=== PATIENT | male | born 2005 | race Caucasian/White ===

== ENCOUNTER 2025-05-25 23:02 | Inpatient (IN) | payer OTHER, SELFPAY ==
[2025-05-25] VITALS (18 sets, daily range): BP systolic 107–159; BP diastolic 57–102; BMI 24.7
--- NOTE | 2025-05-25 21:15 | ED.GENMED ---
History of Present Illness
General
Chief Complaint: Heart Rate Problem
Time Seen by Provider: 05/25/25 21:00
History of Present Illness
History of Present Illness:
Patient is a 18-year-old male with history of intermittent episodes of palpitations that have self resolved in the past who presents to the emergency department palpitations. He reports a family history of WPW in his sister. In the past, he has
attributed his palpitations to caffeine use and alcohol use. He has cut these out and continues to have episodes about once every 1 to 2 months. Today he had an episode of palpitations beginning this afternoon which have not resolved. He has
never been evaluated by cto.
Phy Exam
Physical Exam
Physical Exam:
GENERAL APPEARANCE: NAD, well developed/ well nourished
EYES lids/conjunctiva normal
EARS/NOSE/THROAT Mucous membranes moist,
HEAD/NECK normocephalic atraumatic, neck is supple.
RESPIRATORY respiratory effort normal, speaks in full sentences, no accessory muscle use. Lungs clear to auscultation without rhonchi, wheezes, rales
CARDIAC irregularly irregular rhythm. Tachycardic.
ABDOMINAL Soft, ND/NT. No pulsatile masses on exam, rebound tenderness, Zhang sign or pain over Mcburney's point.
MUSCLES/EXTREMITIES No abnormal range of motion, no swelling.
SKIN Warm, pink and dry. No rashes
NEUROLOGICAL Speech is clear and appropriate. Normal level of consciousness. 5/5 strength in all extremities.
PSYCH Normal mood and affect. Judgement/competence is appropriate
Course
Orders/Labs/Results
Orders:
Orders
05/25/25 20:44
ECG [Electrocardiogram (*1)] Urgent
Reason for Study: Palpitations
05/25/25 20:45
EKG- Treatment ONCE
05/25/25 21:06
0.9% Sodium Chloride 1000 ml [Nss] 1,000 ml IV BOLUS
05/25/25 21:19
Basic Metabolic Panel Urgent
Complete Blood Count/With Diff Urgent
Magnesium Urgent
PTT Urgent
Prothrombin Time Urgent
Troponin I Urgent
05/25/25 22:08
CR Chest Portable - 1 View Urgent
Comment:
Reason For Exam: afib, palpitations
Reason Study Needs to be Portable: Patient Unstable
05/25/25 22:22
Procainamide [Pronestyl] 1,000 mg Dextrose 5%/Water 50 ml [D5w] 48 ml IV NOW
05/25/25 22:39
Admit/Transfer Patient As Directed
Co-Sign Provider:
Level of Care: Inpatient admission
Assign to:: IMU- Intermediate Care
Physician / Group: Gurwinder
Diagnosis: A-Fib / Pre-excitation
Reason for Hospitalization: A-Fib / Pre-excitation
Expected length of stay greater than two midnights?: Yes
ELOS- Estimated Length of Stay in days: 2
I certify the patient meets the requirements for IP care: Yes
05/25/25 22:41
PRN Pain Medication Management As Directed
May give lesser potent ordered pain med per pt: Yes
preference::
Protocol:: Medication orders for pain may be administered in a
manner that supports deferring to patient preference
when the pt is:
- Requesting an ordered lesser potent pain medication.
Least to most potent pain medications are defined
as: acetaminophen < NSAID < tramadol < opioids
(morphine, oxycodone, hydromorphone).
- Requesting a lesser dose of the same medication IF
ORDERED.
- Requesting a less intrusive route of administration
if both routes are prescribed by the provider (PO <
IV).
05/25/25 22:43
Code Status As Directed
Resuscitation Status: Full Code
05/25/25 23:00
Flush (0.9% Sodium Chloride) [Flush (Nss)] See Dose Instructions IV PER PROTOCOL
05/26/25 00:37
Troponin I Q6H
0.9% Sodium Chloride 1000 ml [Nss] 1,000 ml IV 150 mls/hr
Acetaminophen [Tylenol] 650 mg PO Q4HPRN PRN
05/26/25 00:37
CARDIOLOGY CONSULT Routine
Consulting Provider: Ihsmael Huffman
Was physician already notified: Yes
Reason for consult: A-Fib / Pre-excitation
TSH Reflex To Free T4 Routine
Activity As Directed
Activity Level: Ambulate
With Assistance
EKG with chest pain [ECG as needed] As Directed
ECG as needed for:: Chest Pain
I/O [Intake/ Output] As Directed
Frequency: Per unit guidelines
Vital Signs As Directed
Frequency: Per unit guidelines
Weight As Directed
Frequency: Daily
Oxygen Therapy [O2 Therapy] [RESP] Routine
Titrate/Wean O2 to maintain O2 sat greater than (%): 94
DX Deep Vein Thrombosis Video Routine
05/26/25 06:00
EKG [Electrocardiogram (*1)] IN AM
Reason for Study: Chest Pain
NPO
Allow oral meds: Yes
Allow clear liquids: Sips of Clears
Basic Metabolic Panel IN AM
Complete Blood Count/No Diff IN AM
Magnesium IN AM
05/26/25 06:37
Troponin I Q6H
05/26/25 12:37
Troponin I Q6H
05/26/25 18:00
Enoxaparin Sodium [Lovenox] 40 mg SC QPM
Abnormal Lab Results
05/25/25
21:19
MCH 32.4 H pg
(27.0-31.0)
PT 15.0 H Sec
(11.4-14.6)
BUN 24 H mg/dl
(9-20)
Creatinine 1.6 H mg/dL
(0.7-1.3)
Glucose 108 H mg/dl
(70-99)
Troponin I 0.046 H* ng/ml
05/25/25 21:19
05/25/25 21:19
Vital Signs
Initial and Last Documented VS:
Initial Vital Signs
Temp Pulse Resp BP Pulse Ox
97.2 F 77 18 159/102 99
05/25/25 20:43 05/25/25 20:43 05/25/25 20:43 05/25/25 20:43 05/25/25 20:43
Last Documented Vital Signs
Temp Pulse Resp BP Pulse Ox
97.4 F 117 24 157/137 96
05/26/25 00:44 05/26/25 00:41 05/26/25 00:30 05/26/25 00:41 05/26/25 00:25
*Pulse Oximetry
SaO2: 99
Oxygen Mode of Delivery: Room air
Patient hypoxic: no
*Critical Care Note
Total Time (30-74mins, 75-104mins- exclusive of procedures): Not Applicable
ED Attending Note
ED Attending Note
ED Attending Note:
patient with EKG concerning for Afib with preexcitation
hemodynamically stable
consulted cardiology Dr Huffman who spoke with EP purchasing contracting clerk
plan for procainamide load and admission to hospital
-
Portions of this chart may have been created with voice recognition software.� Occasional wrong word or��sound alike� substitutions may have occurred due to the inherent limitations of voice recognition software.
Discharge Plan
Departure
Patient Disposition: Admit
Date of Disposition: 05/25/25
Time of Disposition: 22:19
Presentation/result/management discussed w/ accepting MD/DO: Hospitalist
Discharge Problem:
Atrial fibrillation with rapid ventricular response
Interventions
Interventions:
*Risk Screen - Suicide Last Done: 05/26/25 00:44
*General Assessment Last Done: 05/25/25 21:13
*Neglect/Abuse Screening Last Done: 05/25/25 20:43
*ED- Fall Risk Assessment Last Done: 05/25/25 21:13
*ED COVID-19 Vaccine History Last Done: 05/25/25 21:13
*Nursing Disposition Last Done: 05/26/25 00:35
ED- Cardiac Assessment Last Done: 05/25/25 21:13
ED- Pulmonary Assessment Last Done: 05/25/25 21:13
Discharge Date and Time
Discharge Date/Time: 05/26/25 00:35
[2025-05-25] MEDS: NSS 1000 IV (21:26)
[2025-05-25 21:35] LABS: Hematocrit 46.9 % (39.0-52.0); Hemoglobin 16.7 g/dL (13.0-18.0); Mean Corp Hgb Conc. 35.6 g/dL (33.0-37.0); Mean Corpuscular Volume 90.9 fL (80.0-94.0); Nucleated Red Blood Cells % 0 % (-); Platelet Count 218 10^3/uL (130-400); Red Cell Dist. Width 11.9 % (11.5-14.5)
[2025-05-25 21:43] LABS: INR 1.15; PT 15.0 Sec (11.4-14.6)
[2025-05-25 21:44] LABS: APTT 29.2 Sec (23.4-35.0)
[2025-05-25 21:55] LABS: Blood Urea Nitrogen 24 mg/dl (9-20); Calcium 9.5 mg/dl (8.4-10.2); Carbon Dioxide 24 mmol/L (22-30); Chloride 107 mmol/L (98-107); Estimated Creatinine Clearance 75 ml/min; Glucose 108 mg/dl (70-99); Magnesium 2.3 mg/dl (1.6-2.3); Potassium 4.1 mmol/L (3.5-5.1); Sodium 139 mmol/L (135-145); eGFR > 60.00
[2025-05-25 22:09] LABS: Troponin I 0.046 ng/ml
[2025-05-25] MEDS: FLUSH (NSS) 1 FLUSH IV (22:45)
--- NOTE | 2025-05-25 22:45 | HPS.HSE ---
Family Physician
-
Family Physician: * NONE
Chief Complaint
-
Palpitations
History of Present Illness
Patient is a 20y M with no significant PMH who presents to ED complaining of palpitations. Patient states that he developed heart racing sensation / palpitations this afternoon while at the gym. His symptoms persisted throughout the evening and
he presented to the ED for further evaluation. He has some vague chest discomfort. Denies SOB, lightheadedness, N/V, etc.
Patient reports similar episode that occurred about 1-2 months ago. This lasted for several hours before resolving spontaneously / with mediation.
Family history is significant for WPW in his younger sister and maternal cousin. Patient himself was tested for WPW at [facility] when he was 2-3 yo (at time of sister's diagnosis) and this was reportedly negative.
He has had no symptoms prior to 1-2 months ago.
In the ED, he is resting comfortably in no acute distress.
Medical History
Past Medical History
Past Medical History: Reports None
Past Surgical History: Reports None
Social History
Tobacco: Non-smoker
Alcohol: Occasional
Drug: None
Family History
Family History: Other (Sister: WPW Maternal Cousin: WPW PGF: A-Fib)
Allergies / Home Medications
Allergies reflects when Allergies were last updated in [employer].
Home Medications with original date entered in [employer]
Allergy/Medication List:
Allergies
Allergy/AdvReac Type Severity Reaction Status Date / Time
No Known Allergies Allergy Unverified 05/25/25 20:43
Home Medications
No Meds [No Current Medications] 05/25/25
Review of Systems
-
History Source: Patient
A 12 point ROS was completed and negative except as noted: Yes
Constitutional: Denies Fever or Chills
Respiratory: Denies Cough or Trouble Breathing
Cardiac: Reports Palpitations; Denies Chest Pain or Syncope
Abdomen/GI: Denies Abdominal Pain, Nausea, Vomiting or Diarrhea
: Denies Dysuria or Frequency
Musculoskeletal: Denies Joint Pain or Edema
Neurological: Denies Dizzy or Headache
Physical Exam
Vital Signs
Vital Signs
Temp Pulse Resp BP Pulse Ox
97.2 F 118 17 140/75 98
05/25/25 20:43 05/25/25 22:42 05/25/25 22:42 05/25/25 22:42 05/25/25 22:42
Physical Exam
General: Other (20y M in no distress.)
HEENT: Moist mucous membranes and PERRLA
Respiratory: Clear; No Wheezes, Rales or Rhonchi
Cardiac: S1/S2, Irregular Rhythm and Tachycardia; No Murmur
GI: Soft, Non Tender, Non Distended and Normal Bowel Sounds
Musculoskeletal: No Clubbing, No Cyanosis and No Edema
Neuro: AO x 3
Laboratory Results
-
05/25/25 21:19
05/25/25 21:19
Laboratory Results
PT 15.0 Sec (11.4-14.6) H 05/25/25 21:19
INR 1.15 05/25/25 21:19
APTT 29.2 Sec (23.4-35.0) 05/25/25 21:19
Troponin I 0.046 ng/ml H* 05/25/25 21:19
Impression/Plan
-
A/P: Patient is a 20y M with no significant PMH who presents to ED complaining of palpitations x several hours.
A-Fib / Pre-excitation
- Admit to IMU for further evaluation and treatment.
- EKG with irregular rhythm with periods of ectopy / delta waves suggesting pre-excitation.
- Note family h/o WPW though patient himself reportedly tested negative in his youth.
- Cardiology recommended procainamide infusion.
- Monitor closely on telemetry. Discontinue drip if / when patient returns to sinus rhythm.
- Decrease rate by 1/2 if patient develops hypotension.
- Cardiology / EP evaluation in the AM.
- Follow troponin to peak - elevation likely secondary to tachyarrhythmia.
- Monitor for any new / worsening symptoms.
DVT Prophylaxis: Lovenox
Code Status: Full
[2025-05-25] MEDS: PRONESTYL 50 MG IV (22:50)
[2025-05-26] VITALS (18 sets, daily range): BP systolic 108–157; BP diastolic 61–137; BMI 24.4
[2025-05-26] MEDS: NSS 1000 IV ×4 (00:51→20:46)
--- NOTE | 2025-05-26 01:19 | PTCARENOTE ---
Received patient from ED. Patient is AAOx3 and on RA. Patient has hr is between 110-140. Heart rhythm is irregular. Mother is at bedside with patient. No complaints at this time. Assessment and vital signs as charted, call romero in reach.
[2025-05-26 01:46] LABS: Troponin I 0.030 ng/ml
[2025-05-26 05:53] LABS: Hematocrit 43.0 % (39.0-52.0); Hemoglobin 15.0 g/dL (13.0-18.0); Mean Corp Hgb Conc. 34.9 g/dL (33.0-37.0); Mean Corpuscular Volume 92.7 fL (80.0-94.0); Platelet Count 187 10^3/uL (130-400); Red Cell Dist. Width 12.1 % (11.5-14.5)
[2025-05-26 06:16] LABS: Blood Urea Nitrogen 20 mg/dl (9-20); Calcium 9.0 mg/dl (8.4-10.2); Carbon Dioxide 21 mmol/L (22-30); Chloride 112 mmol/L (98-107); Estimated Creatinine Clearance 100 ml/min; Glucose 96 mg/dl (70-99); Magnesium 2.2 mg/dl (1.6-2.3); Potassium 4.3 mmol/L (3.5-5.1); Sodium 141 mmol/L (135-145); eGFR > 60.00
[2025-05-26 06:28] LABS: Troponin I < 0.012 ng/ml
--- NOTE | 2025-05-26 09:11 | CON.CAR ---
Addendum entered and electronically signed by Bryan Dubois MD 05/26/25 10:48:
Patient was seen and evaluated personally. The case was discussed in detail with nurse practitioner. I agree with the note, plan of care, and documentation as noted below.
Briefly, 20-year-old gentleman with family history of WPW's including his sister which was diagnosed at her . He himself was evaluated at [facility] in 2004 and no significant abnormality identified at that time. On 05/25/2025, he presented to the ER
with atrial fibrillation with preexcitation and was noted to be conducting via the pathway and quite fast rate. Patient's symptoms included palpitations but he denies any chest pain or dizziness. No presyncope. Atrial fibrillation with rapid
ventricle response with preexcitation was treated emergently with procainamide. Patient converted to normal sinus rhythm overnight and is in normal sinus rhythm this morning.
Patient is feeling better while in sinus rhythm and palpitations are gone. 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
Given the fact that the patient's pathway was conducting at fast rates and was associated with atrial fibrillation, we will recommend aggressively treating this pathway. Currently patient is in normal sinus rhythm.
His case and EKGs were explained in detail to patient and his mother. Patient's father, Dr. Gonsalves is a colleague of mine and is in OR right now.
We will proceed with workup including an echo today. We will consider doing WPW ablation tomorrow. Keep n.p.o. after midnight.
Original Note:
Consultation
Consultation Request
Date/Time Consultation Requested: 05/26/2025 00:37
Date/Time Consultation Performed: 09:10
Requesting Provider: Dr. Purdy
Performing Provider: SELWYN Ramos for Dr. Dubois
Reason for Consultation: Atrial fibrillation, pre excitation
Medical History
-
Chief Complaint: Palpitations
History of Present Illness:
Thalia Gonsalves is a 20-year-old male without a significant past medical history who presented to the emergency department with a chief complaint of palpitations. He has had palpitations before and attributed them to caffeine or alcohol. Despite
cessation, he continues to have episodes. His sister had WPW. He was evaluated at [facility] ~2004 and was cleared at that time. Also, his mother has von Willebrand's. He presented with atrial fibrillation with rapid ventricular response.
Preexcitation also seen on telemetry. He received a procainamide 1000 mg infusion. Telemetry still reveals preexcitation. He denies chest pain, dizziness, and shortness of breath.
His mother is at his bedside and provides collateral information.
Past Medical History
Past Medical History: None
Past Surgical History: None
Social History
Tobacco: Non-Smoker
Personal: Single
Living: With Family
Family History
Family History: Other (Sister: WPW. Mother: Von Willebrand's)
Allergies / Home Medications
Allergy/AdvReac Type Severity Reaction Status Date / Time
No Known Allergies Allergy Unverified 05/25/25 20:43
�Medication �Instructions �Recorded �Confirmed �Type
No Meds [No Current Medications] 05/25/25 05/25/25 History
Review of Systems
-
History Source: Patient
All other systems: Negative unless noted
Constitutional: No Symptoms
EENT: No Symptoms
Respiratory: No Symptoms
Cardiac: Palpitations
Abdomen/GI: No Symptoms
: No Symptoms
Musculoskeletal: No Symptoms
Skin: No Symptoms
Neurological: No Symptoms
Endocrine: No Symptoms
Hematologic/Lymphatic: No Symptoms
Physical Exam
Vital Signs
Temp Pulse Resp BP Pulse Ox
97.5 F 68 13 108/65 97
05/26/25 07:25 05/26/25 05:30 05/26/25 05:30 05/26/25 04:00 05/26/25 05:30
Lab Results
05/26/25 05:41
05/26/25 05:41
Troponin I < 0.012 ng/ml D 05/26/25 05:41
Physical Exam
General: Well Developed, Well Nourished, No Apparent Distress and Comfortable
HEENT: Normocephalic, Anicteric and Moist Mucous Membranes
Respiratory: Clear and Non Labored Respirations
Cardiac: S1/S2 and Irregular Rhythm; Negative Peripheral Edema
Breast: Deferred by me
GI: Soft, Non Tender, Non Distended and Normal Bowel Sounds
Rectal: Deferred by Provider
Genito-urinary: No Costovertebral Tender
Musculoskeletal: No Clubbing
Skin: Warm and Dry
Neuro: AO x 3
Hematologic/Lymphatic: No Lymphadenopathy
Psych: Calm
Impression / Plan
-
I/P: 20M without significant past medical history presents with WPW and atrial fibrillation with rapid ventricular response
Outpatient estimator: None
WPW
- S/p procainamide 1000 mg
- Denies OTC supplements
- Update EKG and magnesium level
- Echocardiogram
- Outpatient evaluation at the age of 1 was negative for WPW ([facility]), sister had WPW
Atrial fibrillation with rapid ventricular response
- Now in sinus
- Oral Anticoagulation: None
- [id number]: Zero (<del>Heart</del> <del>failure,</del> <del>HTN,</del> <del>age</del> <del>75</del> <del>or</del> <del>more,</del> <del>Diabetes</del> <del>Mellitus,</del> <del>prior</del> <del>Stroke/TIA,</del> <del>Vascular</del>
<del>disease,</del> <del>age</del> <del>65-74,</del> <del>female</del> <del>gender</del>)
- TSH 7.08, T4 1.14
Abnormal troponin, nonischemic myocardial injury in the setting of tachyarrhythmia
- Currently free of chest pain
- Peak troponin on arrival, 0.046, trending down
Family history of von Willebrand's in his mother
SUBJECTIVE:
As above.
Data Reviewed
-
EKG: Report Reviewed by me
Radiology: Report Reviewed by me (CXR: No acute cardiopulmonary process.)
Labs: Labs Reviewed by me
--- NOTE | 2025-05-26 11:32 | W.PN.HOSP.TC ---
Today's Communication/Plan
-
Assessment / Plan
Assessment / Plan
General: No Apparent Distress, Comfortable and Conversant
HEENT: NormoCephalic, Moist mucous membranes, Atraumatic
Respiratory: Clear and Non Labored Respirations
Cardiac: S1/S2 and Regular Rhythm; No murmur, sinus rhythm on telemetry with abnormal QRS complexes, heart rate 60s to 70s
GI: Soft, Non Tender, Non Distended and Normal Bowel Sounds
Musculoskeletal: No Edema, no deformity
Skin: Warm and dry
: NO Srinivasan
Neuro: Awake, Alert, Nonfocal/grossly intact
Psych: Calm and Intact Judgment/Insight
Mr. Gonsalves is a 20-year-old male with no significant personal medical history who presented with palpitations while working out at the gym. He had some associated vague chest discomfort but denied dizziness or shortness of breath. He has a family
history of his sister being diagnosed with WPW at . He himself was evaluated at that time (when he was 1 to 1 years old) at [facility] with no significant findings. In the ED he was found to be in A-fib with RVR with an aberrant conduction pathway
consistent with WPW. He was treated emergently with procainamide and converted to normal sinus rhythm. He is currently comfortable with no further palpitations and his heart rate remains controlled in the 60s to 70s. He has been admitted for
further evaluation management.
Dvrgo-Shvhznokb-Umbvv:
- Presented with rapid heart rate with aberrant conduction pathway apparently via the posterior septal region
- Treated emergently with procainamide in the ED with return to normal sinus rhythm
- Echocardiogram pending
- Monitor electrolytes, troponin mildly elevated at 0.046 initially and has been downtrending
- Cardiology following
- Will keep n.p.o. after midnight for tentative ablation tomorrow
- Patient was evaluated at the age of 1 at [facility] and found to have no evidence of WPW at that time, sister was diagnosed with WPW at which is the reason he was tested
- Discussed plan with patient's mother who was at bedside and who is a former critical care nurse at this facility, father is a plastic surgeon at this institution and is currently in the OR
DVT prophylaxis: Lovenox
CODE STATUS: Full code
Total time spent on today's encounter was 45 minutes
Anticipated Discharge: 24 - 48 hours
Subjective/Interval History
-
Date of Service: May 26, 2025
Patient was seen and examined at bedside this morning. Heart rate currently well-controlled after emergently being treated with procainamide overnight for A-fib with RVR due to WPW.
Objective Data
-
Labs:
Laboratory Results
05/26/25
05:41
WBC 6.4
Hgb 15.0
Hct 43.0
Plt Count 187
Sodium 141
Potassium 4.3
Chloride 112 H
Carbon Dioxide 21 L
BUN 20
Creatinine 1.2
Glucose 96
Calcium 9.0
Vital Signs:
Vital Signs
Temp Pulse Resp BP Pulse Ox
97.5 F 68 13 108/65 97
05/26/25 07:25 05/26/25 05:30 05/26/25 05:30 05/26/25 04:00 05/26/25 05:30
Review of Systems
-
History Source: Patient
All other systems: Reviewed and negative
Physical Exam
-
General: No Apparent Distress
--- NOTE | 2025-05-26 16:44 | CM ---
Patient with Dx Xgkok-Wejjeiwag-Pfcso. Plan tentative ablation tomorrow. Room air.
Met with patient who resides with his parents in a 2 story house.
The patient was independent in ADLs and ambulation.
He was active and had recently graduated from [employer] as a neuroscience major, with plans to go to Medical School.
The patient has no DME, prior VN.
PCP none
Ph[facility]acy - [facility]
The patient confirms that his mother is a prior ICU nurse, and his father is a Plastic Surgeon.
No CM d/c needs identified.
Plan home.
[2025-05-26] MEDS: LOVENOX 40 MG SC (17:49)
--- NOTE | 2025-05-26 19:43 | PTCARENOTE ---
day shift note. pt in sinus rytyhm today. denies any chest pain or palpitations. iv fluids infusing. ekg and echo done per order. pt is for ablation tomorrow and will be npo after midnight. report given to oncoming rn.
[2025-05-27] VITALS (15 sets, daily range): BP systolic 105–145; BP diastolic 63–97; BMI 24.4
--- NOTE | 2025-05-27 01:09 | PTCARENOTE ---
Assumed care for patient overnight, received report from dalton RN. Pt remains in NSR on the monitor HR 68. Pt asymptomatic and denies any dizziness, chest pain, or palpitations. Pt NPO tonight at midnight for ablation in AM. IVF cont. Pt appears
to be resting comfortably in bed, call romero within reach. Mother is staying overnight.
[2025-05-27] MEDS: NSS 1000 IV (03:55)
[2025-05-27 04:15] LABS: Hematocrit 42.8 % (39.0-52.0); Hemoglobin 14.9 g/dL (13.0-18.0); Mean Corp Hgb Conc. 34.8 g/dL (33.0-37.0); Mean Corpuscular Volume 92.4 fL (80.0-94.0); Platelet Count 180 10^3/uL (130-400); Red Cell Dist. Width 12.0 % (11.5-14.5)
[2025-05-27 04:36] LABS: Blood Urea Nitrogen 15 mg/dl (9-20); Calcium 8.5 mg/dl (8.4-10.2); Carbon Dioxide 23 mmol/L (22-30); Chloride 115 mmol/L (98-107); Estimated Creatinine Clearance 109 ml/min; Glucose 101 mg/dl (70-99); Potassium 4.1 mmol/L (3.5-5.1); Sodium 142 mmol/L (135-145); eGFR > 60.00
--- NOTE | 2025-05-27 07:40 | PTCARENOTE ---
assumed care of pt from nightshift RN. Pt currently sinus eunice on the monitor. VSS. Denies dizziness, heart palpitations. Pt currently NPO for ablation to be done today. Call romero within reach, pt able to make needs known. Care ongoing.
--- NOTE | 2025-05-27 10:37 | W.PN.CD ---
Today's Communication / Plan
-
- Plan for EP study and ablation.
Impression / Plan
-
I/P: 20M without significant past medical history presents with WPW and atrial fibrillation with rapid ventricular response
Outpatient telegraphic typewriter operator chief: None
WPW
- Posteroseptal pathway. Conducts fast with AF.
- S/p procainamide 1000 mg
- Now in sinus but had pre-excitation.
- Echocardiogram 05/26- Normal -LVEF 60%
- Outpatient evaluation at the age of 1 was negative for WPW ([facility] [place]), sister had WPW
- Plan for ablation for the pathway - Close to the conduction system. The risks and benefits were discussed in detail with patient and parents. (Both parents are colleagues of [employer] [place] [facility] - Dad is a plastic / ENT surgeon and Mom is critical care nurse).
- Keep NPO today.
Atrial fibrillation with rapid ventricular response
- Now in sinus
- Oral Anticoagulation: None
- [id number]: Zero (<del>Heart</del> <del>failure,</del> <del>HTN,</del> <del>age</del> <del>75</del> <del>or</del> <del>more,</del> <del>Diabetes</del> <del>Mellitus,</del> <del>prior</del> <del>Stroke/TIA,</del> <del>Vascular</del>
<del>disease,</del> <del>age</del> <del>65-74,</del> <del>female</del> <del>gender</del>)
- TSH 7.08, T4 1.14 - Lytes normal.
Abnormal troponin, nonischemic myocardial injury in the setting of tachyarrhythmia
- Currently free of chest pain
- Peak troponin on arrival, 0.046, trending down
Family history of von Willebrand's in his mother
SUBJECTIVE:
No active complaints.
Physical Exam
Vital Signs/Labs
Vital Signs
Temp Pulse Resp BP Pulse Ox
97.7 F 64 10 133/80 98
05/27/25 03:20 05/27/25 08:00 05/27/25 08:00 05/27/25 08:00 05/27/25 00:44
05/26/25 05/27/25 05/28/25
06:59 06:59 06:59
Actual Weight 77.2 kg 77.2 kg
05/27/25 04:04
05/27/25 04:04
PT 15.0 Sec (11.4-14.6) H 05/25/25 21:19
INR 1.15 05/25/25 21:19
APTT 29.2 Sec (23.4-35.0) 05/25/25 21:19
Magnesium Cancelled 05/26/25 12:00
Free T4 1.14 ng/dl (0.78-2.19) 05/26/25 01:14
LAB Results
05/25/25 05/26/25 05/26/25
21:19 01:14 05:41
Troponin I 0.046 H* 0.030 D < 0.012 D
05/26/25
12:37
Troponin I Cancelled
Physical Exam
Constitutional: No acute distress and Comfortable
EENT: Anicteric and Moist mucous membranes
Cardiovascular: Rhythm & rate is regular, JVD pressure is normal and Systolic murmur absent
Respiratory: Respiratory effort normal and Lungs clear to auscul.
GI: Soft, Distention absent, Non tender and Normal bowel sounds
Neuro/Psych: Alert, Oriented, AO x 3 and Motor deficits absent
Data Reviewed
-
Date of Service: May 27, 2025
Medical Decision Making: Reviewed Test Results, Test Interpretation and Review of Case with other Provider
EKG: Tracing Personally Visualized and interpreted
Echo: Report Reviewed by me
Labs: Labs Reviewed by me
Old Records: Reviewed
--- NOTE | 2025-05-27 13:06 | PTCARENOTE ---
report given to ROSIE RN. Pt to go for ablation
--- NOTE | 2025-05-27 14:08 | PTCARENOTE ---
pt to go to IVU after cathlab. Report given to IVU RN.
--- NOTE | 2025-05-27 14:39 | W.PN.HOSP.TC ---
Today's Communication/Plan
-
Assessment / Plan
Assessment / Plan
General: No Apparent Distress, Comfortable and Conversant
HEENT: NormoCephalic, Moist mucous membranes, Atraumatic
Respiratory: Clear and Non Labored Respirations
Cardiac: S1/S2 and Regular Rhythm; No murmur, sinus rhythm on telemetry with abnormal QRS complexes, heart rate 60s to 70s
GI: Soft, Non Tender, Non Distended and Normal Bowel Sounds
Musculoskeletal: No Edema, no deformity
Skin: Warm and dry
: NO Srinivasan
Neuro: Awake, Alert, Nonfocal/grossly intact
Psych: Calm and Intact Judgment/Insight
Mr. Gonsalves is a 20-year-old male with no significant personal medical history who presented with palpitations while working out at the gym. He had some associated vague chest discomfort but denied dizziness or shortness of breath. He has a family
history of his sister being diagnosed with WPW at . He himself was evaluated at that time (when he was 1 to 1 years old) at [facility] with no significant findings. In the ED he was found to be in A-fib with RVR with an aberrant conduction pathway
consistent with WPW. He was treated emergently with procainamide and converted to normal sinus rhythm. He is currently comfortable with no further palpitations and his heart rate remains controlled in the 60s to 70s. He has been admitted for
further evaluation management.
Hccjv-Qqhgommvx-Ftkzf:
- Presented with rapid heart rate with aberrant conduction pathway apparently via the posterior septal region
- Treated emergently with procainamide in the ED with return to normal sinus rhythm
- Echocardiogram shows preserved ejection fraction with wall motion consistent with conduction abnormality
- Monitor electrolytes, troponin mildly elevated at 0.046 initially and has been downtrending
-Currently n.p.o. pending ablation with EP this afternoon
- Patient was evaluated at the age of 1 at [facility] and found to have no evidence of WPW at that time, sister was diagnosed with WPW at which is the reason he was tested
- Discussed plan with patient's mother who was at bedside and who is a former critical care nurse at this facility, father is a plastic surgeon at this institution
DVT prophylaxis: Lovenox
CODE STATUS: Full code
Total time spent on today's encounter was 35 minutes
Anticipated Discharge: 24 - 48 hours
Subjective/Interval History
-
Date of Service: May 27, 2025
Patient was seen and examined at bedside. Comfortable. Awaiting EP procedure for cardiac ablation this afternoon.
Objective Data
-
Labs:
Laboratory Results
05/27/25
04:04
WBC 6.6
Hgb 14.9
Hct 42.8
Plt Count 180
Sodium 142
Potassium 4.1
Chloride 115 H
Carbon Dioxide 23
BUN 15
Creatinine 1.1
Glucose 101 H
Calcium 8.5
Vital Signs:
Vital Signs
Temp Pulse Resp BP Pulse Ox
97.7 F 56 14 129/80 99
05/27/25 08:30 05/27/25 12:00 05/27/25 12:00 05/27/25 12:00 05/27/25 09:51
I&O
05/26/25 05/27/25 05/28/25
06:59 06:59 06:59
Intake Total 3760 / 3760
Balance 3760 / 3760
Review of Systems
-
History Source: Patient
All other systems: Reviewed and negative
Physical Exam
-
General: No Apparent Distress
--- NOTE | 2025-05-27 15:30 | PTCARENOTE ---
all of pt belongings transferred to rm [id number].
--- NOTE | 2025-05-27 15:52 | ITS.CL.ABL ---
[employer] - Ablation
Ablation
Procedure Report:
Supra-Ventricular Tachycardia � AVRT Ablation:
Mr. Gonsalves is a very pleasant�20 yr old young man with medical history significant for WPW and palpitations and was diagnosed with supra-ventricular tachycardia (SVT). He presented with atrial fibrillation with fast conduction via pathway and needed
treatment with Procainamide. He is brought here today to the EP lab for electrophysiology (EP) study of the heart and possible ablation of the accessory pathway.
�
Date of the Procedure:
05/27/2025
Indications: Supra-Ventricular Tachycardia (SVT)
�
Pre-Operative Diagnosis: Supra-Ventricular Tachycardia (SVT)
�
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
�
Procedure Performed: EP study and SVT ablation
�
Performing Physician:
Bryan Dubois MD
��
Anesthesia:
See anesthesia records
�
Detailed Description of the Procedure:
Written informed consent was obtained from the patient after a full explanation of the risks and benefits of the procedure including the risks of sedation and anesthesia. The patient was brought to the electrophysiology laboratory in stable
condition in fasting state. Continuous electrocardiographic and hemodynamic monitoring was initiated.
The initial rhythm was normal sinus.
The procedure site was meticulously prepared with surgical scrub and allowed to dry with no pooling. Sterile draping was applied to cover the procedure site. The image intensifier was draped with sterile bag and positioned over the patient.
Sheath and Catheter Placement:
After infusion of local anesthetic, vascular access was obtained under ultrasound guidance and sheaths were placed over guide wire as detailed below.
�
Sheaths:
- � � � 6 Fr sheath in right femoral vein
- � � � 7 Fr sheath in right femoral vein
- � � � 10 Fr that was later upgraded to 11.5 Fr Agilis sheath in right femoral vein
Catheters:
- � � � 6Fr � CRD Quad - cath at HIS
- � � � Deca polar Bard catheter - at locations of CS
- � � � HD Grid in RA and RV
- � � � 4mm force sensing irrigated Tacticath SF Bidirectional ablation catheter
�
Following the sheaths placement, patient was given Heparin bolus and EP study was done.
Baseline intervals (milliseconds):
PP interval (baseline cycle length): 665
P wave duration: 88
AK interval: 88
QRS duration: 115
QT interval: 320
QTc: 392 ms
�
P onset to HRA: 0
P onset to AVJ: 40
AH interval: 44
His duration: 12
HV interval: 0
Q onset to RVa: 0
��
Sinus Node Function:
HRA pacing showed adequate threshold. The sinus node functions are within acceptable normal range.
�
Atrioventricular Brendon Function:
Atrial stimulation with incremental pacing intervals was performed from the high right atrium (HRA) and right ventricular apex (RVa) and antegrade and retrograde atrioventricular (AV) block cycle lengths were determined. The antegrade AV Wenckebach
was noted at 290 msec.
�
Programmed atrial stimulation was performed with drive train of 600 msec followed by a single atrial extra-stimulus and the AV brendon and the atrial ERPs were determined
Pre ablation, AVNERP was <230msec
AERP was 230msec.
There was pre-excitation noted throughout.
Ventricular stimulation showed concentric, retrograde conduction through the posterolateral pathway. The retrograde CS activation was different from the sinus activation.
A septal pathway was suspected.
Ventricular Function:
VA Enckebach was 310msec.
Single ventricular extrastimuli were delivered following drive train of 600 msec and the ventricular ERP was determined at below 700/250 msec. The ventricular electrical functions are within acceptable range.
Para-Hisian pacing:
The anteroseptal pathway prompted the study and Para-Hisian pacing was attempted. The QRS remained wide and HIS could not be captured without capturing the ventricle. But the VA time remained unchanged with high and low voltage. A septal accessory
pathway was suspected. ��
There was clear pre-excitation noted and the AP was demonstrable. The decision was made to map and ablate the pathway.
Electroanatomic 3D Mapping (EAM) and Ablation:
The sinus rhythm was mapped with earliest RV activation and the pathway was mapped. The HIS signals were identified and were mapped.
The RV was paced and the earliest A was mapped using [employer].
�
The RA and the CS was mapped that showed that the AP was closer to mouth of the CS at the septal side consistent with postero-septal accessory pathway.�The CS and LA was out of the AP location.
The HD grid from [employer] was removed and ablation catheter wasplaced. EAM and radiofrequency ablation was performed using an open irrigation, force-sensing 4mm radiofrequency ablation catheter ([employer]am Mobile). 3D mapping was performed with [employer]
software. Cardiac anatomy as established. His cloud was established.
3D contact electroanatomical map was created using [employer] 3D mapping.�The AP was noted to be located at the postero septal location.�The RA was mapped with RV pacing.
Ablation: WPW AP ablation
The EAM of the RA septum and the CS showed posteroseptal location of the pathway. The HIS signal was close to the pathway insertion as well. The atrial insertion was noted. Near the atrial insertion, the pathway potentials were noted. Radiofrequency
ablation was performed using [employer] Mobile with low-irrigation, force-sensing 4mm bidirectional radiofrequency ablation catheter through the Agilis sheath. The ablation catheter was placed at the point of interest with the distinct pathway potential
present and the ablation lesions was applied at 35 navarro for 60 degrees. Multitude of slow junctional beats were noted without any dropped beats.
The pre-excitation disappeared with the first ablation and were noted again with observation. Additional ablations were placed and no more pre-excitation noted.
Post Ablation EP study:
There was no sign of AV block present. The EP study was done that showed normal conduction with decremental conduction.
There was still normal brendon retrograde VA conduction present.
The post ablation EP study showed normal AV conduction. There was no retrograde VA conduction present post ablation.
The AK was 159msec (changed from 88 ms); QRS was 95msec; AH was 55msec with HV of 45msec.
Post ablation AV brendon ERP was 600/340 msec with atrial ERP at <600/340 msec.
There was no sign of AV block noted.
Procedure End
Following the completion of the EP study, catheters were removed. The sheaths were removed and hemostasis achieved with placement of �VASCADE� and manual compression.
�
Estimated Blood loss:
<5 cc
�
Specimens Removed:
None.
�
Implants / Devices:
None
�
Urine output:
None
�
Packs / Drains/ Tubes:
None
�
Instrument / Sponge Count Correct:
Yes
�
Complications of the Procedure:
None
�
Condition of Patient at Time of Transfer:
Hemodynamically stable with no neurological or vascular compromise.
�
Summary:
Electrophysiology study with posteroseptal pathway and accessory pathway ablation.
--- NOTE | 2025-05-27 16:19 | PTCARENOTE ---
Rec'd pt from EP lab. Pt is AOX3. Tele- SR w/ SA. HR 60s. Dr. Ramos at bedside. R groin is c/d/i. No bleeding/hematoma noted. Activity restrictions reviewed w/ pt and verbalizes understanding. Pt has no complaints at this time. Oriented pt to
room. Parents at bedside. Currently in bed; call heather w/in reach.
[2025-05-27] MEDS: LOVENOX 40 MG SC (20:02)
--- NOTE | 2025-05-27 22:43 | PTCARENOTE ---
Assumed care of the pt @ 1900. Pt is AAOx3 SR/ST on the monitor vss. Rt groin PVI site c/d/i. Mom at bedside. Call romero within reach.
[2025-05-28] VITALS (7 sets, daily range): BP systolic 129–146; BP diastolic 61–87
[2025-05-28 04:41] LABS: Hematocrit 42.2 % (39.0-52.0); Hemoglobin 15.1 g/dL (13.0-18.0); Mean Corp Hgb Conc. 35.8 g/dL (33.0-37.0); Mean Corpuscular Volume 91.7 fL (80.0-94.0); Platelet Count 200 10^3/uL (130-400); Red Cell Dist. Width 11.7 % (11.5-14.5)
[2025-05-28 05:12] LABS: Blood Urea Nitrogen 11 mg/dl (9-20); Calcium 9.3 mg/dl (8.4-10.2); Carbon Dioxide 24 mmol/L (22-30); Chloride 111 mmol/L (98-107); Estimated Creatinine Clearance 109 ml/min; Glucose 95 mg/dl (70-99); Magnesium 1.9 mg/dl (1.6-2.3); Potassium 4.1 mmol/L (3.5-5.1); Sodium 140 mmol/L (135-145); eGFR > 60.00
--- NOTE | 2025-05-28 08:09 | W.PN.CD ---
Today's Communication / Plan
-
- Plan for redo AP ablation in AM
Impression / Plan
-
I/P: 20M without significant past medical history presents with WPW and atrial fibrillation with rapid ventricular response
Outpatient adventure guide: None
WPW
- Posteroseptal pathway. Conducts fast with AF.
- s/p Radiofrequency ablation 05/27/25 - narrow QRS and normal WA interval
- The pathway started conducting again at 1:40 am 05/28/25
- Plan for redo ablation on 05/29/25- NPO after midnight.
- Now in sinus but had pre-excitation.
- Echocardiogram 05/26- Normal -LVEF 60%
Atrial fibrillation with rapid ventricular response
- Now in sinus
- Oral Anticoagulation: None
- [id number]: Zero (<del>Heart</del> <del>failure,</del> <del>HTN,</del> <del>age</del> <del>75</del> <del>or</del> <del>more,</del> <del>Diabetes</del> <del>Mellitus,</del> <del>prior</del> <del>Stroke/TIA,</del> <del>Vascular</del>
<del>disease,</del> <del>age</del> <del>65-74,</del> <del>female</del> <del>gender</del>)
- TSH 7.08, T4 1.14 - Lytes normal.
Abnormal troponin, nonischemic myocardial injury in the setting of tachyarrhythmia
- Currently free of chest pain
- Peak troponin on arrival, 0.046, trending down
Family history of von Willebrand's in his mother
SUBJECTIVE:
No active complaints.
Physical Exam
Vital Signs/Labs
Vital Signs
Temp Pulse Resp BP Pulse Ox
97.9 F 63 16 132/77 97
05/28/25 08:02 05/28/25 04:10 05/28/25 04:10 05/27/25 22:50 05/28/25 08:02
05/27/25 05/28/25 05/29/25
06:59 06:59 06:59
Actual Weight 77.2 kg
05/28/25 04:18
05/28/25 04:18
PT 15.0 Sec (11.4-14.6) H 05/25/25 21:19
INR 1.15 05/25/25 21:19
APTT 29.2 Sec (23.4-35.0) 05/25/25 21:19
Magnesium 1.9 mg/dl (1.6-2.3) 05/28/25 04:18
Free T4 1.14 ng/dl (0.78-2.19) 05/26/25 01:14
LAB Results
05/25/25 05/26/25 05/26/25
21:19 01:14 05:41
Troponin I 0.046 H* 0.030 D < 0.012 D
05/26/25
12:37
Troponin I Cancelled
Physical Exam
Constitutional: No acute distress and Comfortable
EENT: Anicteric and Moist mucous membranes
Cardiovascular: Rhythm & rate is regular, Pedal edema is absent and JVD pressure is normal
Respiratory: Respiratory effort normal, Lungs clear to auscul. and Wheeze Absent
GI: Soft, Non tender and Normal bowel sounds
Neuro/Psych: Alert, Oriented, AO x 3 and Motor deficits absent
Other: Cath Site
Data Reviewed
-
Date of Service: May 28, 2025
Medical Decision Making: Reviewed Test Results, Test Interpretation and Review of Case with other Provider
EKG: Tracing Personally Visualized and interpreted
Echo: Report Reviewed by me
Medical Tests (PFT, Pathology etc): Image Personally Visualized and interpreted
Labs: Labs Reviewed by me
Old Records: Reviewed
--- NOTE | 2025-05-28 11:16 | PTCARENOTE ---
Pt is AOx3, no complaints of pain or discomfort. Independent OOB. SR on tele monitor, VSS. Right groin CDI. Plan for repeat ablation tomorrow, NPO after midnight. Parents at bedside and updated. Call romero within reach.
--- NOTE | 2025-05-28 12:49 | CM ---
Chart reviewed. Patient is independent of ADLS, lives with his parent sin a 2 STH, 0 DME. Patient going for a redo ablation 05/29/24. CM to follow
--- NOTE | 2025-05-28 13:58 | W.PN.HOSP.TC ---
Today's Communication/Plan
-
Assessment / Plan
Assessment / Plan
General: No Apparent Distress, Comfortable and Conversant
HEENT: NormoCephalic, Moist mucous membranes, Atraumatic
Respiratory: Expansion and Non Labored Respirations
Cardiac: Sinus rhythm, heart rate 60-100
GI: Non Distended and Normal Bowel Sounds
Musculoskeletal: No Edema, no deformity
Skin: Warm and dry
: NO Srinivasan
Neuro: Awake, Alert, Nonfocal/grossly intact
Psych: Calm and Intact Judgment/Insight
Mr. Gonsalves is a 20-year-old male with no significant personal medical history who presented with palpitations while working out at the gym. He had some associated vague chest discomfort but denied dizziness or shortness of breath. He has a family
history of his sister being diagnosed with WPW at . He himself was evaluated at that time (when he was 1 to 1 years old) at [facility] with no significant findings. In the ED he was found to be in A-fib with RVR with an aberrant conduction pathway
consistent with WPW. He was treated emergently with procainamide and converted to normal sinus rhythm. He is currently comfortable with no further palpitations and his heart rate remains controlled in the 60s to 70s. He has been admitted for
further evaluation management.
Alaea-Butpztvft-Vocot:
- Presented with rapid heart rate with aberrant conduction pathway apparently via the posterior septal region
- Treated emergently with procainamide in the ED with return to normal sinus rhythm
- Echocardiogram shows preserved ejection fraction with wall motion consistent with conduction abnormality
- Status post cardiac ablation yesterday with recurrent tachyarrhythmia overnight, planning repeat cardiac ablation tomorrow 05/29
- Patient was evaluated at the age of 1 at [facility] and found to have no evidence of WPW at that time, sister was diagnosed with WPW at which is the reason he was tested
DVT prophylaxis: Lovenox
CODE STATUS: Full code
Total time spent on today's encounter was 35 minutes
Anticipated Discharge: 24 - 48 hours
Subjective/Interval History
-
Date of Service: May 28, 2025
Patient was seen and examined bedside this morning. Feeling well after cardiac ablation yesterday although developed recurrence of his arrhythmia overnight. Planning reevaluation tomorrow 05/29.
Objective Data
-
Labs:
Laboratory Results
05/28/25
04:18
WBC 8.2
Hgb 15.1
Hct 42.2
Plt Count 200
Sodium 140
Potassium 4.1
Chloride 111 H
Carbon Dioxide 24
BUN 11
Creatinine 1.1
Glucose 95
Calcium 9.3
Vital Signs:
Vital Signs
Temp Pulse Resp BP Pulse Ox
98.4 F 101 16 137/80 98
05/28/25 11:01 05/28/25 11:01 05/28/25 11:01 05/28/25 11:01 05/28/25 11:01
I&O
05/27/25 05/28/25 05/29/25
06:59 06:59 06:59
Intake Total 3760 / 3760 480 / 480
Balance 3760 / 3760 480 / 480
Review of Systems
-
History Source: Patient
All other systems: Reviewed and negative
Physical Exam
-
General: No Apparent Distress
[2025-05-28] MEDS: LOVENOX 40 MG SC (18:00)
[2025-05-29] VITALS (10 sets, daily range): BP systolic 114–128; BP diastolic 68–83
--- NOTE | 2025-05-29 03:15 | PTCARENOTE ---
Pt. in NSR all shift, rate 50's-low 100's with activity. No ectopy on the monitor. VSS. No complaints pain/discomfort. Right groin ablation site ANUEL with no hematoma or oozing, positive pedal pulse. Pt. resting quietly.
--- NOTE | 2025-05-29 07:11 | W.PN.CD ---
Today's Communication / Plan
-
- EP study to assess the recovered pathway
- Appears quite weak now and if not significant conduction noted, pt can be discharged.
Impression / Plan
-
I/P: 20M without significant past medical history presents with WPW and atrial fibrillation with rapid ventricular response
Outpatient iron caster: None
WPW
- Posteroseptal pathway. Conducts fast with AF.
- s/p Radiofrequency ablation 05/27/25 - narrow QRS and normal RI interval
- The pathway started conducting again at 1:40 am 05/28/25 - High vagal tone induced
- This AM, there is no conduction via the pathway
- Plan for EP study today
- Now in sinus without pre-excitation.
- Echocardiogram 05/26- Normal -LVEF 60%
Atrial fibrillation with rapid ventricular response
- Now in sinus
- Oral Anticoagulation: None
- [id number]: Zero (<del>Heart</del> <del>failure,</del> <del>HTN,</del> <del>age</del> <del>75</del> <del>or</del> <del>more,</del> <del>Diabetes</del> <del>Mellitus,</del> <del>prior</del> <del>Stroke/TIA,</del> <del>Vascular</del>
<del>disease,</del> <del>age</del> <del>65-74,</del> <del>female</del> <del>gender</del>)
- TSH 7.08, T4 1.14 - Lytes normal.
Abnormal troponin, nonischemic myocardial injury in the setting of tachyarrhythmia
- Currently free of chest pain
- Peak troponin on arrival, 0.046, trending down
Family history of von Willebrand's in his mother
SUBJECTIVE:
No active complaints.
Physical Exam
Vital Signs/Labs
Vital Signs
Temp Pulse Resp BP Pulse Ox
97.8 F 63 16 126/77 99
05/29/25 02:53 05/29/25 02:53 05/29/25 02:53 05/29/25 02:53 05/29/25 02:53
05/28/25 05/29/25 05/30/25
06:59 06:59 06:59
Actual Weight 77.2 kg
05/28/25 04:18
05/28/25 04:18
PT 15.0 Sec (11.4-14.6) H 05/25/25 21:19
INR 1.15 05/25/25 21:19
APTT 29.2 Sec (23.4-35.0) 05/25/25 21:19
Magnesium 1.9 mg/dl (1.6-2.3) 05/28/25 04:18
Free T4 1.14 ng/dl (0.78-2.19) 05/26/25 01:14
LAB Results
05/26/25
12:37
Troponin I Cancelled
Physical Exam
Constitutional: No acute distress and Comfortable
EENT: Anicteric and Moist mucous membranes
Cardiovascular: Rhythm & rate is regular, Pedal edema is absent, JVD pressure is normal and Systolic murmur absent
Respiratory: Respiratory effort normal, Lungs clear to auscul., Wheeze Absent and Crackles Absent
GI: Soft, Distention absent, Non tender and Normal bowel sounds
Neuro/Psych: Alert, Oriented, AO x 3 and Motor deficits absent
Other: Cath Site
Data Reviewed
-
Date of Service: May 29, 2025
Medical Decision Making: Reviewed Test Results, Test Interpretation and Review of Case with other Provider
EKG: Tracing Personally Visualized and interpreted
Echo: Report Reviewed by me
Medical Tests (PFT, Pathology etc): Discussed with Physician, Discussed with Nurse, Discussed with Patient and Discussed with Family
Labs: Labs Reviewed by me
Old Records: Reviewed
--- NOTE | 2025-05-29 08:53 | ITS.EPS ---
[facility] - EPS Report
EPS
Procedure Report:
Electrophysiology study:
Mr. 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 He had intermittent conduction through his pathway noted post
ablation and is here in the EP lab to assess the strength of his pathway and if needed ablation of the AP.
Date of the Procedure:
05/29/2025
Indications: Ntmzg-Coweyguko-Chtof syndrome
Pre-Operative Diagnosis: Ttrve-Zuiqdzlhe-Rwyzt syndrome
Post-Operative Diagnosis: Rlndg-Vbfghchew-Nxxrf syndrome
Procedure Performed: EP study
Performing physician:
Bryan Dubois MD
Anesthesia:
See anesthesia records
Detailed Description of the Procedure:
Written informed consent was obtained from the patient after a full explanation of the risks and benefits of the procedure including the risks of sedation and anesthesia.
The patient was brought to the electrophysiology laboratory in stable condition in fasting state. Continuous electrocardiographic and hemodynamic monitoring was initiated. The initial rhythm was normal sinus.
The procedure site was meticulously prepared with surgical scrub and allowed to dry with no pooling. Sterile draping was applied to cover the procedure site. The image intensifier was draped with sterile bag and positioned over the patient.
After infusion of local anesthetic, vascular access was obtained under ultrasound guidance and sheaths were placed over guide wire as detailed below.
A 3000 units of heparin was given.
Sheaths:
��������� 11.5Fr sheath in right femoral vein
��������� 6Fr sheath in right femoral vein
Catheters:
��������� HD Grid catheter in the RA, RV
��������� 6Fr - QRD Quad-cath at HIS, RV
Baseline intervals (milliseconds):
PP interval (baseline cycle length): 909
P wave duration: 85
KY interval: 148
QRS duration: 88
QT interval:350
AH interval: 90
HV interval: 42
Q onset to RVa: 0
Sinus Node Function:
Burst pacing was performed from the right atrium to measure the sinus node recovery time (SNRT) and corrected sinus node recovery time (cSNRT). The sinus node functions are within acceptable normal range.
Atrioventricular Brendon Function:
Atrial stimulation with incremental pacing intervals was performed from the high right atrium (HRA) and right ventricular apex (RVa) and antegrade and retrograde atrioventricular (AV) block cycle lengths were determined. The antegrade AV Wenckebach
was noted at 440 msec.
Programmed atrial stimulation was performed with drive train of 600 msec followed by a single atrial extra-stimulus and the AV brendon and the atrial ERPs were determined. The AV brendon ERP was 600/410 msec and the atrial ERP was 240msec under deep
sedation.
There was normal decremental conduction noted through the AV node. The programmed stimuli showed no evidence of dual pathways or echo beats.
There was no pre-excitation noted with EKG at baseline, sinus and with A and V pacing.
Ventricular stimulation showed no retrograde conduction at baseline.
The AV brendon functions are deemed within normal range and no sign of dual pathway noted.
Ventricular Function:
Ventricular stimulation showed no retrograde conduction. The Ventricular ERP was 600/<400 msec with drive train of 600 msec. The ventricular electrical functions are within acceptable range.
Arrhythmia Induction:
Programmed stimulation including single, and double extrastimuli were delivered from the HRA and the various locations of the CS as well as from the RVa. The burst pacing from the and HRA, and various CS locations also attempted. There was no
arrhythmia induced with aggressive induction maneuvers.
No sustained arrhythmia was inducible.
Electroanatomic mapping:
Using the HD grid, the RA and RV was mapped in sinus rhythm with normal conduction pathways and the HIS cloud were identified. There was no AP conduction noted.
Drug testing � Isuprel:
Isuprel was started and gradually increased from 1 to 2 mcg /min with adequate tachycardia response noted.
With the 2 mcg/min Isuprel, patient developed sinus tachycardia.
The EP study along with arrhythmia induction was repeated with programmed stimulation and the burst pacing was done. With Isuprel the conduction through the AV node improved and the AVNERP was 600/240 ms.
There was no pre-excitation noted and no evidence of residual pathway was seen.
The EP study during the washout phase was again attempted but no arrhythmia was noted.
Drug testing � Adenosine:
A dose of 6 mg of Adenosine was given via central line and conduction was noted. Patient had developed AV brendon block with Adenosine and there were two beats that conducted to the RV via the residual pathway.
This showed the weak presence of residual pathway that has not been able to conduct at normal physiologic conditions.
Procedure End
Following the completion of the EP study, catheters were removed. The sheaths were removed and hemostasis achieved with VASCADE and manual compression.
Estimated Blood loss:
<5 cc
Specimens Removed:
None.
Implants / Devices:
None
Urine output:
None
Packs / Drains/ Tubes:
None
Instrument / Sponge Count Correct:
Yes
Complications of the Procedure:
None
Condition of Patient at Time of Transfer:
Hemodynamically stable with no neurological or vascular compromise.
Summary:
Electrophysiology study with Isuprel and Adenosine showing weak and non-physiologic residual septal pathway.
--- NOTE | 2025-05-29 10:22 | CM ---
Chart reviewed. Patient's mom at bedside. Patient is independent of ADLS, lives with his parents in a 2 [address], 0 DME. Plan is for the patient to return home. CM to follow
--- NOTE | 2025-05-29 10:36 | PTCARENOTE ---
Pt received post procedure in SR. Bilateral groin site dressings dry and intact. Sites soft and non tender. Denies any pain or sob. Room air sat 99%.
--- NOTE | 2025-05-29 14:22 | W.DCSUMMARY ---
Discharge Summary
Discharge Data
Date of Admission: 05/25/25
Date of Discharge: 05/29/25
Total time spent discharging patient (in min): 45
-
Pending Results: No
Hospital Course
Mr. Gonsalves is a 20-year-old male with no significant personal medical history who presented with palpitations while working out at the gym. He had some associated vague chest discomfort but denied dizziness or shortness of breath. He has a family
history of his sister being diagnosed with WPW at . He himself was evaluated at that time (when he was 1 to 1 years old) at [facility] with no significant findings. In the ED he was found to be in A-fib with RVR with an aberrant conduction pathway
consistent with WPW. He was treated emergently with procainamide and converted to normal sinus rhythm. He is currently comfortable with no further palpitations and his heart rate remains controlled in the 60s to 70s. He was admitted for further
evaluation management.
Echocardiogram showed preserved ejection fraction and wall motion abnormality consistent with conduction abnormality. He underwent cardiac ablation on 05/28 for Yrnol-Ilqrluzaw-Trndv syndrome. He had some recurrence of his tachyarrhythmia later that
night. He was reevaluated by electrophysiology the following day, 05/29, however they opted to defer any further intervention for now while he recovers from his first ablation. He has remained hemodynamically stable and his heart rate became
well-controlled 24 hours after ablation. He was medically stable for discharge to home. He will need close outpatient follow-up with cardiology.
General: No Apparent Distress, Comfortable
HEENT: NormoCephalic, Atraumatic
Respiratory: Expansion and Non Labored Respirations
Cardiac: Sinus rhythm, heart rate 70
GI: Non Distended and Normal Bowel Sounds
Musculoskeletal: No Edema, no deformity
Skin: Warm and dry
: NO Srinivasan
Neuro: Awake, Alert, Nonfocal/grossly intact
Psych: Calm and Intact Judgment/Insight
Discharge Plan
-
Patient Disposition: Home (Routine Discharge)
Discharge Diagnosis/Procedures: WPW post ablation 05/28/25, EP study 05/29/25
Driving Restrictions: No driving for 24 hours
Activity Restrictions/Additional Instructions:
Mr. Gonsalves is a 20-year-old male with no significant personal medical history who presented with palpitations while working out at the gym. He had some associated vague chest discomfort but denied dizziness or shortness of breath. He has a family
history of his sister being diagnosed with WPW at . He himself was evaluated at that time (when he was 1 to 1 years old) at [facility] with no significant findings. In the ED he was found to be in A-fib with RVR with an aberrant conduction pathway
consistent with WPW. He was treated emergently with procainamide and converted to normal sinus rhythm. He is currently comfortable with no further palpitations and his heart rate remains controlled in the 60s to 70s. He was admitted for further
evaluation management.
Echocardiogram showed preserved ejection fraction and wall motion abnormality consistent with conduction abnormality. He underwent cardiac ablation on 05/28 for Gtzpd-Ahcmthzrt-Tgnzp syndrome. He had some recurrence of his tachyarrhythmia later that
night. He was reevaluated by electrophysiology the following day, 05/29, however they opted to defer any further intervention for now while he recovers from his first ablation. He has remained hemodynamically stable and his heart rate became
well-controlled 24 hours after ablation. He was medically stable for discharge to home. He will need close outpatient follow-up with cardiology.
Stand Alone Forms: DC Instructions- Cath/EP Lab
Referrals:
Elli Gill NP [Specified Professional Personl, Cardiology] - 06/18/25 11:00 am
NONE,* [Family Provider, Internal Medicine]
Prescriptions:
No Action
No Current Medications
0
Discharge Orders:
Discharge Patient (As Directed); Ordered 05/29/25
Ordered By: Yinka Tripp
Care Plan Goals
Care Plan Goals:
Problem: Readiness for enhanced knowledge related to diagnosis and treatment plan
Goal: Understand your diagnosis and treatment plan needs, including medications if applicable.
Instructions: Know your diagnosis, underlying causes and treatment plan options, including medications if applicable. Consult with your health care team to learn about your diagnosis and treatment plan, including medications if applicable.
Discharge Date and Time
Print Language: MAORI
--- NOTE | 2025-05-29 15:50 | PTCARENOTE ---
Pt oob ad kyree post bedrest. Right groin site remains WNL. Remains in SR. Pt discharged to home with his mother. Discharge instructions given and reviewed with pt and his mother. Pt verbalized understanding with no questions.
== END 2025-05-29 15:56 | disposition home or self-care (01) | DRG 274 ==
LOC: IVU 23:02
PROVIDERS: Nurse Practitioner Adult Health; Nurse Practitioner Gerontology; ADMITTING PHYSICIAN Hospitalist; ATTENDING PHYSICIAN Internal Medicine; EMERGENCY PHYSICIAN Emergency Medicine; OTHER PHYSICIAN Internal Medicine Cardiovascular Disease
PROC: 02583ZZ Destruction of Conduction Mechanism, Percutaneous Approach (ICD-10-PCS; 2025-05-27)
PROC: 4A023FZ Measurement of Cardiac Rhythm, Percutaneous Approach (ICD-10-PCS; 2025-05-29)
PROC: 4A0234Z Measurement of Cardiac Electrical Activity, Percutaneous Approach (ICD-10-PCS; 2025-05-29)
DX: I45.6 Pre-excitation syndrome (principal); Z82.49 Family history of ischemic heart disease and other diseases of the circulatory system; I47.19 Other supraventricular tachycardia; I48.91 Unspecified atrial fibrillation; Z83.2 Family history of diseases of the blood and blood-forming organs and certain disorders involving the immune mechanism
CPT/HCPCS: 34812; 71045; 80048; 83735; 84439; 84443; 84484; 85025; 85027; 85610; 85730; 86850; 86900; 86901; 93005; 93306; 93620; 93623; 93653; 96360; 99285; C1730; C1732; C1760; C1766; C1892; C1894; C2630; J0153

== ENCOUNTER → 2025-06-24 11:02 | Outpatient (REF) | payer OTHER, SELFPAY | LOC: OHS 11:02 | PROVIDERS: ATTENDING PHYSICIAN Nurse Practitioner Family | DX: Z23 Encounter for immunization (principal) | CPT/HCPCS: 36415; 86480; 86706 ==

== ENCOUNTER → 2025-08-27 10:10 | Outpatient (REF) | payer OTHER, SELFPAY | LOC: OHS 10:10 | PROVIDERS: ATTENDING PHYSICIAN Nurse Practitioner Family | DX: Z23 Encounter for immunization (principal) | CPT/HCPCS: 36415; 86706 ==

== ENCOUNTER → 2025-10-01 11:02 | Outpatient (REF) | payer OTHER, SELFPAY | LOC: RCS 11:02 | PROVIDERS: ATTENDING PHYSICIAN Nurse Practitioner; FAMILY PHYSICIAN Family Medicine | DX: I45.6 Pre-excitation syndrome (principal) | CPT/HCPCS: 93017 ==